=== PATIENT | male | born 1935 | race Caucasian/White ===

== ENCOUNTER → 2018-11-30 | Outpatient (CLI) | payer MEDICARE ==
[~2018-11-30] MED LIST: AMLO10TA7 PO; ASPI-1026 PO; ASPI-1181 PO; ATEN25TA PO; BIFI1CAP PO; CHOL100040 PO; CYAN250010 PO; FLUO10CA21 PO; ISOS30TA6 PO; KRIL1CAP18 PO; MULTIVITAMIN PO; NAPR220C15 PO; NITR0.4T SL; OMEP20CA10 PO; POTA99TA4 PO; PRAS10TA6 PO; VALS320T2 PO
[2018-11-30 12:12] LABS: CREATININE 1.1 mg/dL (0.5-1.5)
== END | disposition home or self-care (01) ==
LOC: LAB 11:19
PROVIDERS: ATTEND Urology
DX: R31.0 Gross hematuria (principal)
CPT/HCPCS: 36415; 82565; 84520

== ENCOUNTER → 2018-12-01 | Outpatient (CLI) | payer MEDICARE ==
[~2018-12-01] MED LIST changes: +IOHEXOL-350 75 ML VIAL IV ONE
== END | disposition home or self-care (01) ==
LOC: RAH 07:36
PROVIDERS: ATTEND Urology
DX: N28.1 Cyst of kidney, acquired (principal); K57.30 Diverticulosis of large intestine without perforation or abscess without bleeding; K44.9 Diaphragmatic hernia without obstruction or gangrene; I70.0 Atherosclerosis of aorta; K43.9 Ventral hernia without obstruction or gangrene; M47.816 Spondylosis without myelopathy or radiculopathy, lumbar region
CPT/HCPCS: 74178; Q9967

== ENCOUNTER 2019-02-28 09:58 | Day surgery (SDC) | payer MEDICARE ==
[~2019-02-28] VITALS: Ht 180.3 cm; Wt 94.3 kg
[~2019-02-28 09:58] MED LIST changes: -ASPI-1026 PO; -IOHEXOL-350 75 ML VIAL IV ONE; +LOSA100T58 PO; +OMEP-50 PO; -OMEP20CA10 PO; +SODIUM CHLORIDE 0.9% 1000ML 1,000 ML IV ONE
[2019-02-28 11:12] VITALS: BP 141/69
[2019-02-28] MEDS ORDERED: OMEP40CA13 PO (11:22)
[2019-02-28 12:26] VITALS: BP 89/40
[2019-02-28 12:31] VITALS: BP 102/52
[2019-02-28 12:41] VITALS: BP 111/63
[2019-02-28 12:46] VITALS: BP 110/70
== END 2019-02-28 13:01 | disposition home or self-care (01) ==
LOC: ENDO 09:58 → DAH 09:58 → ENDO 13:01
PROVIDERS: ATTEND Internal Medicine Gastroenterology
DX: D50.9 Iron deficiency anemia, unspecified (principal); K29.50 Unspecified chronic gastritis without bleeding; K44.9 Diaphragmatic hernia without obstruction or gangrene; I10 Essential (primary) hypertension; E78.5 Hyperlipidemia, unspecified; I25.10 Atherosclerotic heart disease of native coronary artery without angina pectoris; F41.9 Anxiety disorder, unspecified; Z88.8 Allergy status to other drugs, medicaments and biological substances; Z79.82 Long term (current) use of aspirin; Z79.899 Other long term (current) drug therapy; Z87.891 Personal history of nicotine dependence; Z98.890 Other specified postprocedural states; Z82.49 Family history of ischemic heart disease and other diseases of the circulatory system; Z95.5 Presence of coronary angioplasty implant and graft; Z72.89 Other problems related to lifestyle
CPT/HCPCS: 43239; 88305; 88342; 93005; A4606; J7030

== ENCOUNTER → 2019-08-08 | Outpatient (CLI) | payer MEDICARE ==
[~2019-08-08] MED LIST changes: -BIFI1CAP PO; -CYAN250010 PO; +GADODIAMIDE 10 MMOL/20 ML VIAL IV ONE; -NAPR220C15 PO; -OMEP-50 PO; +OMEP40CA13 PO; -POTA99TA4 PO; -PRAS10TA6 PO; -SODIUM CHLORIDE 0.9% 1000ML 1,000 ML IV ONE; -VALS320T2 PO
== END | disposition home or self-care (01) ==
LOC: RAH 14:40
PROVIDERS: ATTEND Internal Medicine Critical Care Medicine
DX: I63.9 Cerebral infarction, unspecified (principal); J34.1 Cyst and mucocele of nose and nasal sinus; I67.82 Cerebral ischemia; R20.2 Paresthesia of skin
CPT/HCPCS: 70553; A9579

== ENCOUNTER → 2019-10-05 | Outpatient (CLI) | payer MEDICARE ==
[~2019-10-05] MED LIST changes: -GADODIAMIDE 10 MMOL/20 ML VIAL IV ONE
== END | disposition home or self-care (01) ==
LOC: SHCH 12:51
PROVIDERS: ATTEND Internal Medicine Cardiovascular Disease
DX: I08.0 Rheumatic disorders of both mitral and aortic valves (principal); I82.409 Acute embolism and thrombosis of unspecified deep veins of unspecified lower extremity
CPT/HCPCS: 93306; 93971

== ENCOUNTER 2021-08-25 11:30 | Inpatient (IN) | payer MEDICARE ==
[~2021-08-25] VITALS: Ht 182.9 cm; Wt 89.8 kg
[~2021-08-25 11:30] MED LIST changes: +AMLO-258 PO; -AMLO10TA7 PO; -ASPI-1181 PO; +ASPI-1443 PO; -ISOS30TA6 PO; +ISOS30TA92 PO; -OMEP40CA13 PO; +OMEP40CA21 PO
[2021-08-25] MEDS ORDERED: FLUO10TA3 PO (12:15)
[2021-08-25 12:21] LABS: BASOPHILS % (AUTO) 0.5 % (0.0-5.0); EOSINOPHILS % (AUTO) 2.9 % (0.0-8.0); HEMATOCRIT 37.2 % (42-54); LYMPHOCYTES % (AUTO) 22.6 % (21.0-51.0); MEAN CORPUSCULAR HEMOGLOBIN 27.1 pg (27.0-33.0); MEAN CORPUSCULAR HGB CONC 31.7 g/dL (32.0-36.0); MEAN CORPUSCULAR VOLUME 85.3 fL (79-99); MONOCYTES % (AUTO) 11.2 % (3.0-13.0); NEUTROPHILS % (AUTO) 62.4 % (40.0-77.0); PLATELET COUNT (AUTO) 266 K/uL (130-400); RED BLOOD CELL COUNT(AUTO) 4.36 MIL/uL (4.50-6.20); RED CELL DISTRIBUTION WIDTH 15.6 % (11.0-15.5); WHITE BLOOD COUNT (AUTO) 7.3 K/uL (4.8-10.8)
[2021-08-25] MEDS ORDERED: 0.9% NACL 250ML 250 ML IV ONE (12:30)
[2021-08-25 12:35] LABS: CREATININE 1.1 mg/dL (0.5-1.5); POTASSIUM 4.3 mmol/L (3.5-5.1)
[2021-08-25 12:36] LABS: INR 0.98 (0.85-1.15); PROTHROMBIN TIME 10.7 SEC (9.6-11.6)
[2021-08-25 12:38] LABS: PARTIAL THROMBOPLASTIN TIME 29.8 SEC (26.3-35.5)
[2021-08-25 12:40] LABS: ALBUMIN 3.5 g/dL (3.5-5.0); BILIRUBIN,TOTAL 0.7 mg/dL (0.2-1.0); TOTAL PROTEIN, SERUM 7.3 g/dL (6.0-8.3)
[2021-08-25] MEDS ORDERED: ASPIRIN 325MG TAB PO ONE (15:00)
[2021-08-25] MEDS ORDERED: CLOPIDOGREL 300MG TAB PO ONE (15:00)
[2021-08-25] MEDS ORDERED: CLOPIDOGREL 300MG TAB ONE (16:10)
[2021-08-25] MEDS ORDERED: ASPIRIN 325MG TAB ONE (16:10)
[2021-08-25] MEDS ORDERED: HYDRALAZINE 20MG/ML VIAL IV PRN (16:30)
[2021-08-25 16:47] LABS: HEMOGLOBIN A1C 6.2 % (4.0-6.0)
[2021-08-25 17:53] LABS: APPEARANCE,URINE Clear (CLEAR); BILIRUBIN,URINE Negative (NEGATIVE); COLOR,URINE Yellow (YELLOW); GLUCOSE, URINE (UA) Negative (NEGATIVE); KETONES,URINE Negative (NEGATIVE); LEUKOCYTE ESTERASE ,URINE Negative (NEGATIVE); NITRATE,URINE Negative (NEGATIVE); OCCULT BLOOD,URINE Negative (NEGATIVE); PH,URINE 6.5 (5.0-8.0); PROTEIN,URINE Negative (NEGATIVE); UROBILINOGEN,URINE 0.2 mg/dL (0.2-1.0)
[2021-08-25] MEDS ORDERED: ACETAMINOPHEN 325 MG TAB PO ONE (19:30)
[2021-08-25] MEDS: CHOLECALCIFEROL 1000 UNIT PO SCH (21:00)
[2021-08-25] MEDS: FLUOXETINE HCL 10 MG CAPSULE PO SCH (21:15)
[2021-08-25 22:01] VITALS: BP 139/77
[2021-08-26 05:47] VITALS: BP 142/67
[2021-08-26 07:30] VITALS: BP 154/74
[2021-08-26] MEDS: CHOLECALCIFEROL 1000 UNIT PO SCH (09:00)
[2021-08-26] MEDS: ASPIRIN 81MG CHEW TAB PO SCH (09:50)
[2021-08-26] MEDS: PANTOPRAZOLE 40 MG TAB DR PO SCH (09:51)
[2021-08-26] MEDS: FLUOXETINE HCL 10 MG CAPSULE PO SCH ×2 (09:51→20:37)
[2021-08-26] MEDS: CLOPIDOGREL 75MG TAB PO SCH (09:51)
[2021-08-26 11:00] VITALS: BP 138/62
[2021-08-26 15:30] VITALS: BP 144/74
[2021-08-26] MEDS ORDERED: ACETAMINOPHEN 325 MG TAB ONE (20:26)
[2021-08-26 20:33] VITALS: BP 157/74
[2021-08-27 00:43] VITALS: BP 145/72
[2021-08-27 03:45] LABS: HEMATOCRIT 34.8 % (42-54); MEAN CORPUSCULAR HEMOGLOBIN 27.5 pg (27.0-33.0); MEAN CORPUSCULAR HGB CONC 32.8 g/dL (32.0-36.0); MEAN CORPUSCULAR VOLUME 84.1 fL (79-99); RED BLOOD CELL COUNT(AUTO) 4.14 MIL/uL (4.50-6.20); RED CELL DISTRIBUTION WIDTH 15.5 % (11.0-15.5); RETICULOCYTE % (AUTO) 1.29 % (0.42-2.23)
[2021-08-27 04:00] LABS: % IRON SATURATION 37.5 % (30-44)
[2021-08-27 04:26] LABS: CHOLESTEROL 218 mg/dL (<200); HDL CHOLESTEROL 38 mg/dL (29-71); LDL DIRECT 136 mg/dL (0-99); THYROID STIMULATING HORMONE 1.33 uIU/mL (0.36-3.74); TRIGLYCERIDES 230 mg/dL (30-200)
[2021-08-27 05:49] VITALS: BP 176/77
[2021-08-27 07:30] VITALS: BP 145/75
[2021-08-27] MEDS: CHOLECALCIFEROL 1000 UNIT PO SCH ×2 (09:00→09:58)
[2021-08-27] MEDS ORDERED: CARVEDILOL 3.125 MG TABLET PO ONE (09:20)
[2021-08-27] MEDS ORDERED: LOSA50TA64 PO (09:54)
[2021-08-27] MEDS ORDERED: ATEN25TA PO (09:54)
[2021-08-27] MEDS ORDERED: CLOP75TA14 PO (09:56)
[2021-08-27] MEDS: CLOPIDOGREL 75MG TAB PO SCH (09:57)
[2021-08-27] MEDS: PANTOPRAZOLE 40 MG TAB DR PO SCH (09:57)
[2021-08-27] MEDS: FLUOXETINE HCL 10 MG CAPSULE PO SCH (09:57)
[2021-08-27] MEDS: ASPIRIN 81MG CHEW TAB PO SCH (09:58)
[2021-08-27] MEDS ORDERED: LOSARTAN 25 MG TABLET PO SCH (10:00)
[2021-08-27] MEDS ORDERED: ATENOLOL 25 MG TABLET PO SCH (10:00)
[2021-08-27 11:30] VITALS: BP 148/74
[2021-08-27 15:30] VITALS: BP 159/60
[2021-08-28] MEDS ORDERED: LOSARTAN 25 MG TABLET PO SCH (09:00)
[2021-08-28] MEDS ORDERED: ATENOLOL 25 MG TABLET PO SCH (09:00)
== END 2021-08-27 18:25 | disposition home or self-care (01) | DRG 65 ==
LOC: EDH 11:30 → EDHIP 16:16 → 4DH 21:34
PROVIDERS: ADMIT Internal Medicine; ATTEND Internal Medicine
DX: I63.89 Other cerebral infarction (principal); G81.94 Hemiplegia, unspecified affecting left nondominant side; R47.01 Aphasia; I10 Essential (primary) hypertension; E78.5 Hyperlipidemia, unspecified; G51.0 Bell's palsy; D64.9 Anemia, unspecified; R29.701 NIHSS score 1; I25.10 Atherosclerotic heart disease of native coronary artery without angina pectoris; Z95.5 Presence of coronary angioplasty implant and graft; Z95.1 Presence of aortocoronary bypass graft; Z79.82 Long term (current) use of aspirin; Z79.02 Long term (current) use of antithrombotics/antiplatelets; Z88.8 Allergy status to other drugs, medicaments and biological substances; Z82.0 Family history of epilepsy and other diseases of the nervous system; Z82.49 Family history of ischemic heart disease and other diseases of the circulatory system
CPT/HCPCS: 36415; 70450; 70544; 70547; 70551; 71045; 80053; 80061; 81003; 82607; 82728; 82746; 82948; 83036; 83540; 83550; 84443; 84484; 85025; 85027; 85045; 85610; 85730; 92522; 92610; 93005; 93880; 97039; G0378; J7050

== ENCOUNTER → 2021-09-25 | Outpatient (CLI) | payer MEDICARE ==
[~2021-09-25] MED LIST changes: -AMLO-258 PO; +CLOP75TA14 PO; -FLUO10CA21 PO; +FLUO10TA3 PO; -ISOS30TA92 PO; -LOSA100T58 PO; +LOSA50TA64 PO
== END | disposition home or self-care (01) ==
LOC: RAH 12:17
PROVIDERS: ATTEND Internal Medicine Cardiovascular Disease
DX: I08.0 Rheumatic disorders of both mitral and aortic valves (principal); I63.9 Cerebral infarction, unspecified
CPT/HCPCS: 93306; 96374; C8929

== ENCOUNTER 2022-07-29 23:10 | Observation (INO) | payer MEDICARE ==
[~2022-07-29] VITALS: Ht 180.3 cm; Wt 84.2 kg
[~2022-07-29 23:10] MED LIST changes: -CLOP75TA14 PO; +EMPA25TA PO; +ISOS30TA92 PO; +LOSA100T58 PO; -LOSA50TA64 PO; +NIFE30TA98 PO; -NITR0.4T SL; +prevagen
[2022-07-29] MEDS ORDERED: IPRATROPIUM 0.5 MG/2.5 ML INH IH ONE (23:30)
[2022-07-29] MEDS ORDERED: ALBUTEROL 0.083% 2.5 MG/3 ML INH IH ONE (23:30)
[2022-07-29 23:48] LABS: BASOPHILS % (AUTO) 0.6 % (0.0-5.0); EOSINOPHILS % (AUTO) 4.6 % (0.0-8.0); HEMATOCRIT 35.7 % (42-54); LYMPHOCYTES % (AUTO) 8.9 % (21.0-51.0); MEAN CORPUSCULAR HEMOGLOBIN 27.7 pg (27.0-33.0); MEAN CORPUSCULAR HGB CONC 32.5 g/dL (32.0-36.0); MEAN CORPUSCULAR VOLUME 85.2 fL (79-99); MONOCYTES % (AUTO) 8.7 % (3.0-13.0); NEUTROPHILS % (AUTO) 76.8 % (40.0-77.0); PLATELET COUNT (AUTO) 251 K/uL (130-400); RED BLOOD CELL COUNT(AUTO) 4.19 MIL/uL (4.50-6.20); RED CELL DISTRIBUTION WIDTH 16.5 % (11.0-15.5); WHITE BLOOD COUNT (AUTO) 10.7 K/uL (4.8-10.8)
[2022-07-30] LABS: CREATININE 1.2 mg/dL (0.5-1.5); POTASSIUM 4.3 mmol/L (3.5-5.1)
[2022-07-30 00:06] LABS: INR 0.95 (0.85-1.15); PROTHROMBIN TIME 10.4 SEC (9.6-11.6)
[2022-07-30 00:07] LABS: B-TYPE NATRIURETIC PEPTIDE 1820 pg/mL (0-100); PARTIAL THROMBOPLASTIN TIME 29.4 SEC (26.3-35.5)
[2022-07-30 00:10] LABS: ALBUMIN 3.2 g/dL (3.5-5.0); MAGNESIUM 1.9 mg/dL (1.80-2.40); TOTAL PROTEIN, SERUM 6.9 g/dL (6.0-8.3)
[2022-07-30] MEDS ORDERED: FUROSEMIDE 40MG VIAL IV ONE (01:00)
[2022-07-30] MEDS ORDERED: DOCUSATE SODIUM 100 MG CAP PO PRN (04:00)
[2022-07-30] MEDS ORDERED: LABETALOL 20MG SYG IV PRN (04:00)
[2022-07-30] MEDS ORDERED: ACETAMINOPHEN 650 MG SUPPOSITORY RC PRN (04:00)
[2022-07-30] MEDS ORDERED: IPRATROPIUM 0.5 MG/2.5 ML INH IH PRN (04:00)
[2022-07-30] MEDS ORDERED: TEMAZEPAM 15 MG CAPSULE PO PRN (04:00)
[2022-07-30] MEDS ORDERED: HYDRALAZINE 20MG/ML VIAL IV PRN (04:00)
[2022-07-30] MEDS ORDERED: ACETAMINOPHEN 325 MG TAB PO PRN (04:00)
[2022-07-30] MEDS ORDERED: LACTULOSE 20 GM/30 ML UDCUP PO PRN (04:00)
[2022-07-30] MEDS ORDERED: ONDANSETRON 4MG INJ IVP PRN (04:00)
[2022-07-30] MEDS ORDERED: CLONIDINE HCL 0.1 MG TABLET PO PRN (04:00)
[2022-07-30] MEDS ORDERED: IOHEXOL 350 MG/ML 100ML INFUS..BTL IV ONE (06:08)
[2022-07-30] MEDS: INSULIN HUMULIN R 100 UNIT/ML 3ML SQ SCH ×4 (07:30→21:00)
[2022-07-30] MEDS ORDERED: ENOXAPARIN SODIUM 40 MG/0.4 ML SYRINGE SQ SCH (09:00)
[2022-07-30] MEDS: FUROSEMIDE 40MG VIAL IV SCH ×2 (09:27→21:27)
[2022-07-30] MEDS: ENOXAPARIN SODIUM 40 MG/0.4 ML SYRINGE SQ SCH (09:27)
[2022-07-30] MEDS: ASPIRIN 81MG CHEW TAB PO SCH (09:28)
[2022-07-30 09:56] LABS: BASOPHILS % (AUTO) 0.4 % (0.0-5.0); EOSINOPHILS % (AUTO) 4.1 % (0.0-8.0); HEMATOCRIT 36.5 % (42-54); LYMPHOCYTES % (AUTO) 18.3 % (21.0-51.0); MEAN CORPUSCULAR HEMOGLOBIN 28.2 pg (27.0-33.0); MEAN CORPUSCULAR HGB CONC 32.9 g/dL (32.0-36.0); MEAN CORPUSCULAR VOLUME 85.9 fL (79-99); MONOCYTES % (AUTO) 9.6 % (3.0-13.0); NEUTROPHILS % (AUTO) 67.2 % (40.0-77.0); PLATELET COUNT (AUTO) 241 K/uL (130-400); RED BLOOD CELL COUNT(AUTO) 4.25 MIL/uL (4.50-6.20); RED CELL DISTRIBUTION WIDTH 16.4 % (11.0-15.5); WHITE BLOOD COUNT (AUTO) 8.3 K/uL (4.8-10.8)
[2022-07-30 10:10] LABS: CREATININE 1.1 mg/dL (0.5-1.5); MAGNESIUM 1.8 mg/dL (1.80-2.40); PHOSPHORUS 3.9 mg/dL (2.5-4.9); POTASSIUM 3.8 mmol/L (3.5-5.1)
[2022-07-30 15:30] VITALS: BP 153/77
[2022-07-30 21:00] VITALS: BP 145/86
[2022-07-30] MEDS: FAMOTIDINE 20MG VIAL IV SCH (21:27)
[2022-07-30] MEDS: ATENOLOL 25 MG TABLET PO SCH (21:28)
[2022-07-30 23:50] VITALS: BP 108/74
[2022-07-31 04:51] LABS: HEMATOCRIT 36.1 % (42-54); MEAN CORPUSCULAR HEMOGLOBIN 28.1 pg (27.0-33.0); MEAN CORPUSCULAR HGB CONC 33.2 g/dL (32.0-36.0); MEAN CORPUSCULAR VOLUME 84.5 fL (79-99); RED BLOOD CELL COUNT(AUTO) 4.27 MIL/uL (4.50-6.20); RED CELL DISTRIBUTION WIDTH 16.1 % (11.0-15.5); WHITE BLOOD COUNT (AUTO) 7.6 K/uL (4.8-10.8)
[2022-07-31 05:01] VITALS: BP 146/55
[2022-07-31 05:35] LABS: CREATININE 1.2 mg/dL (0.5-1.5); MAGNESIUM 1.9 mg/dL (1.80-2.40); POTASSIUM 3.9 mmol/L (3.5-5.1)
[2022-07-31] MEDS: INSULIN HUMULIN R 100 UNIT/ML 3ML SQ SCH ×4 (06:48→21:00)
[2022-07-31 08:00] VITALS: BP 131/77
[2022-07-31] MEDS: ASPIRIN 81MG CHEW TAB PO SCH (09:00)
[2022-07-31] MEDS ORDERED: EMPAGLIFLOZIN 25MG TABLET PO SCH (09:00)
[2022-07-31] MEDS: ENOXAPARIN SODIUM 40 MG/0.4 ML SYRINGE SQ SCH (09:54)
[2022-07-31] MEDS: ASPIRIN 81 MG EC TAB PO SCH (09:55)
[2022-07-31] MEDS: FAMOTIDINE 20MG VIAL IV SCH ×2 (09:56→21:29)
[2022-07-31] MEDS: LOSARTAN 100 MG TABLET PO SCH (09:56)
[2022-07-31] MEDS: ATENOLOL 25 MG TABLET PO SCH ×2 (09:56→21:29)
[2022-07-31] MEDS: FUROSEMIDE 40MG VIAL IV SCH ×2 (09:56→21:29)
[2022-07-31] MEDS: NIFEDIPINE ER 30 MG TAB PO SCH (09:59)
[2022-07-31 12:00] VITALS: BP 132/90
[2022-07-31 16:00] VITALS: BP 124/70
[2022-07-31 19:05] VITALS: BP 126/71
[2022-07-31 23:55] VITALS: BP 121/69
[2022-08-01 04:38] VITALS: BP 116/58
[2022-08-01] MEDS: INSULIN HUMULIN R 100 UNIT/ML 3ML SQ SCH ×2 (07:30→11:30)
[2022-08-01 08:00] VITALS: BP 128/61
[2022-08-01] MEDS: FAMOTIDINE 20MG VIAL IV SCH (08:42)
[2022-08-01] MEDS: FUROSEMIDE 40MG VIAL IV SCH (08:42)
[2022-08-01] MEDS: ASPIRIN 81 MG EC TAB PO SCH (08:43)
[2022-08-01] MEDS: LOSARTAN 100 MG TABLET PO SCH (08:43)
[2022-08-01] MEDS: NIFEDIPINE ER 30 MG TAB PO SCH (08:43)
[2022-08-01] MEDS: ENOXAPARIN SODIUM 40 MG/0.4 ML SYRINGE SQ SCH (08:43)
[2022-08-01] MEDS: ATENOLOL 25 MG TABLET PO SCH (08:44)
[2022-08-01 12:00] VITALS: BP 90/64
== END 2022-08-01 16:30 | disposition home or self-care (01) ==
LOC: EDH 23:10 → EDHIP 07-30 02:12 → 3DH 07-30 15:11
PROVIDERS: ADMIT Internal Medicine Critical Care Medicine; ATTEND Internal Medicine Critical Care Medicine
DX: I11.0 Hypertensive heart disease with heart failure (principal); I50.43 Acute on chronic combined systolic (congestive) and diastolic (congestive) heart failure; I27.20 Pulmonary hypertension, unspecified; I25.10 Atherosclerotic heart disease of native coronary artery without angina pectoris; I35.0 Nonrheumatic aortic (valve) stenosis; I48.0 Paroxysmal atrial fibrillation; E78.5 Hyperlipidemia, unspecified; K21.9 Gastro-esophageal reflux disease without esophagitis; F32.A Depression, unspecified; E78.00 Pure hypercholesterolemia, unspecified; Z85.51 Personal history of malignant neoplasm of bladder; Z79.899 Other long term (current) drug therapy; Z86.73 Personal history of transient ischemic attack (TIA), and cerebral infarction without residual deficits; Z95.1 Presence of aortocoronary bypass graft; Z95.5 Presence of coronary angioplasty implant and graft
CPT/HCPCS: 82550; 83735 ×3; 83874; 84484; 80053; 83880 ×2; 85025 ×2; 85378; 85610; 85730; 36415 ×3; 71045; 93005; 94640 ×2; 96374; 96376 ×3; 96372 ×3; 96375; 99285; 84100; 80048 ×2; 82948 ×11; 71275; 94664; 94760 ×4; 85027; G0378 ×61; J3490 ×4; J1650 ×3; J1940 ×6; Q9967